=== PATIENT | female | born 1940 | race Hispanic/Latino ===

== ENCOUNTER 2017-08-18 07:23 | Observation (INO) | payer MEDICARE ==
[2017-08-18] VITALS (11 sets, daily range): BP systolic 125–172; BP diastolic 55–83
[~2017-08-18] VITALS: Ht 152.4 cm; Wt 95.5 kg
[~2017-08-18 07:23] MED LIST: ADV250 IH; AEC81 PO; ATEN50TA PO; ATOR20TA65 PO; CLOP75TA32 PO; DEXL60CA3 PO; FOLI0.4T2 PO; FURO40TA5 PO; GABA-531 PO; LEVAHFA IH; METO5TAB2 PO; MULT-1258 PO; RANI150T7 PO; RANO500T2 PO; SERT100T PO; THEO400T3 PO; XALA2.5OS OU
[2017-08-18] MEDS ORDERED: SODIUM CHLORIDE 0.9% 1000ML 1,000 ML IV SCH ×2 (08:00→13:26)
[2017-08-18 08:14] LABS: BASOPHILS % (AUTO) 0.5 % (0.0-5.0); EOSINOPHILS % (AUTO) 3.2 % (0.0-8.0); HEMATOCRIT 37.1 % (36-48); LYMPHOCYTES % (AUTO) 19.1 % (21.0-51.0); MEAN CORPUSCULAR HEMOGLOBIN 26.6 pg (27.0-33.0); MEAN CORPUSCULAR HGB CONC 32.4 g/dL (32.0-36.0); MONOCYTES % (AUTO) 5.8 % (3.0-13.0); NEUTROPHILS % (AUTO) 71.4 % (40.0-77.0); PLATELET COUNT (AUTO) 240 K/uL (130-400); RED BLOOD CELL COUNT(AUTO) 4.52 MIL/uL (4.00-5.50); WHITE BLOOD COUNT (AUTO) 10.9 K/uL (4.8-10.8)
[2017-08-18 08:15] LABS: APPEARANCE,URINE Clear (CLEAR); BILIRUBIN,URINE Negative (NEGATIVE); COLOR,URINE Yellow (YELLOW); GLUCOSE, URINE (UA) Negative (NEGATIVE); KETONES,URINE Negative (NEGATIVE); LEUKOCYTE ESTERASE ,URINE Trace (NEGATIVE); NITRATE,URINE Negative (NEGATIVE); OCCULT BLOOD,URINE Negative (NEGATIVE); PROTEIN,URINE 300 (NEGATIVE)
[2017-08-18 08:24] LABS: BACTERIA,URINE Rare /HPF (None Seen); CREATININE 0.8 mg/dL (0.5-1.5); POTASSIUM 4.5 mmol/L (3.5-5.1); SQUAMOUS EPITHELIAL CELL,UR Few /HPF (0-2)
[2017-08-18 08:29] LABS: YEAST,URINE BUDDING Rare /HPF (None Seen)
[2017-08-18 08:45] LABS: INR 1.02 (0.85-1.15); PARTIAL THROMBOPLASTIN TIME 26.6 SEC (26.3-35.5); PROTHROMBIN TIME 10.7 SEC (9.6-11.6)
[2017-08-18] MEDS ORDERED: systane OP (09:16)
[2017-08-18] MEDS ORDERED: THEO400T3 PO (09:16)
[2017-08-18] MEDS ORDERED: ventolin hfa IH (09:21)
[2017-08-18] MEDS ORDERED: ACET-2743 PO (09:26)
[2017-08-18] MEDS ORDERED: PAZEO OP (09:26)
[2017-08-18] MEDS ORDERED: [UNRECOGNIZED DRUG - OTHER] OP (09:26)
[2017-08-18] MEDS ORDERED: nasonex NASAL (09:26)
[2017-08-18] MEDS ORDERED: CYCL30DR OP (09:26)
[2017-08-18] MEDS ORDERED: UMEC62.5 IH (09:34)
[2017-08-18] MEDS ORDERED: NEB TX IH (10:31)
[2017-08-18] MEDS ORDERED: BIVALIRUDIN 250 MG/VIAL IV ONE (12:05)
[2017-08-18] MEDS ORDERED: LIDOCAINE HCL-MPF 2% 5ML VIAL ONE (12:06)
[2017-08-18] MEDS ORDERED: IOPAMIDOL-370 75 ML VIAL IV ONE (12:06)
[2017-08-18] MEDS ORDERED: NITROGLYCERIN 5 MG/ML 10 ML VIAL IV ONE (12:06)
[2017-08-18] MEDS ORDERED: MIDAZOLAM HCL 1 MG/ML 2ML VIAL ONE (12:36)
[2017-08-18] MEDS ORDERED: FENTANYL CITRATE PF 50 MCG/1 ML 2ML VIAL ONE (12:36)
[2017-08-18] MEDS ORDERED: ATROPINE SULFATE 0.1 MG/ML 10 ML SYG IVP ONE (12:58)
[2017-08-18] MEDS ORDERED: METOPROLOL TARTRATE 1 MG/ML 5ML VIAL IV PRN (13:30)
[2017-08-18] MEDS ORDERED: DEXTROSE 50%-WATER 50 ML DISP.SYRIN IV PRN (13:30)
[2017-08-18] MEDS ORDERED: GLUCAGON 1MG KIT 1 MG ML IM PRN (13:30)
[2017-08-18] MEDS ORDERED: CLOPIDOGREL BISULFATE 300 MG TAB ONE (13:30)
[2017-08-18] MEDS ORDERED: ASPIRIN 81MG TAB.CHEW ONE (13:30)
[2017-08-18] MEDS ORDERED: HYDRALAZINE HCL 20 MG/ML VIAL IV PRN (13:30)
[2017-08-18] MEDS ORDERED: NITROGLYCERIN 0.4 MG SL TAB SL PRN (13:30)
[2017-08-18] MEDS ORDERED: ACETAMINOPHEN EXTRA STRENGTH 500 MG TABLET PO SCH (13:30)
[2017-08-18] MEDS: GABAPENTIN 300 MG CAPSULE PO SCH ×2 (14:19→21:57)
[2017-08-18 15:30] LABS: CREATINE KINASE MB 0.7 ng/mL (0.5-3.6); CREATINE KINASE, TOTAL 58 U/L (21-232); MYOGLOBIN 29 ng/mL (10-92); TROPONIN I < 0.04 ng/mL (0.00-0.06)
[2017-08-18] MEDS: IPRATROPIUM 0.5 MG/2.5 ML INH IH SCH ×2 (18:43→23:10)
[2017-08-18] MEDS ORDERED: THEOPHYLLINE ANHYDROUS 100 MG TAB.SR.12H PO SCH (21:00)
[2017-08-18] MEDS: ***HM***(Cyclosporine (Restasis) 1 DROP) OP SCH (21:00)
[2017-08-18] MEDS ORDERED: ATORVASTATIN CALCIUM 20 MG TABLET PO SCH (21:00)
[2017-08-18] MEDS: ATENOLOL 50 MG TABLET PO SCH (21:00)
[2017-08-18] MEDS ORDERED: LATANOPROST 2.5 ML DROPS OU SCH (21:00)
[2017-08-19 03:47] LABS: HEMATOCRIT 35.5 % (36-48); MEAN CORPUSCULAR HEMOGLOBIN 26.6 pg (27.0-33.0); MEAN CORPUSCULAR HGB CONC 32.6 g/dL (32.0-36.0); MEAN CORPUSCULAR VOLUME 81.8 fL (79-99); PLATELET COUNT (AUTO) 219 K/uL (130-400); RED BLOOD CELL COUNT(AUTO) 4.34 MIL/uL (4.00-5.50); RED CELL DISTRIBUTION WIDTH 18.1 % (11.0-15.5); WHITE BLOOD COUNT (AUTO) 10.7 K/uL (4.8-10.8)
[2017-08-19 03:59] LABS: CREATININE 0.7 mg/dL (0.5-1.5); POTASSIUM 3.9 mmol/L (3.5-5.1)
[2017-08-19 04:08] VITALS: BP 137/50
[2017-08-19] MEDS: IPRATROPIUM 0.5 MG/2.5 ML INH IH SCH (06:39)
[2017-08-19 07:51] VITALS: BP 144/67
[2017-08-19] MEDS ORDERED: LATANOPROST 2.5 ML DROPS OU SCH (08:18)
[2017-08-19] MEDS: GABAPENTIN 300 MG CAPSULE PO SCH (08:27)
[2017-08-19] MEDS: ATENOLOL 50 MG TABLET PO SCH (08:28)
[2017-08-19] MEDS: ***HM***(Cyclosporine (Restasis) 1 DROP) OP SCH (08:29)
[2017-08-19] MEDS ORDERED: ***HM***(Dexlansoprazole (Dexilant) 60 MG) PO SCH (09:00)
[2017-08-19] MEDS ORDERED: SERTRALINE HCL 50 MG TABLET PO SCH (09:00)
[2017-08-19] MEDS ORDERED: CLOPIDOGREL BISULFATE 75 MG TAB PO SCH ×2 (09:00)
[2017-08-19] MEDS ORDERED: LORATADINE 10 MG TABLET PO SCH (09:00)
[2017-08-19] MEDS ORDERED: FUROSEMIDE 40 MG TABLET PO SCH (09:00)
[2017-08-19 10:59] VITALS: BP 149/60
[2017-08-20] MEDS ORDERED: ASPIRIN 81 MG EC TAB PO SCH (09:00)
== END 2017-08-19 12:35 | disposition home or self-care (01) ==
LOC: DAH 07:23 → CLH 07:23 → 2AH 07:24
PROVIDERS: ADMIT Internal Medicine Cardiovascular Disease; ATTEND Internal Medicine Cardiovascular Disease
DX: I25.119 Atherosclerotic heart disease of native coronary artery with unspecified angina pectoris (principal); I25.110 Atherosclerotic heart disease of native coronary artery with unstable angina pectoris; I50.33 Acute on chronic diastolic (congestive) heart failure; I11.0 Hypertensive heart disease with heart failure; E78.5 Hyperlipidemia, unspecified; Z79.899 Other long term (current) drug therapy
CPT/HCPCS: 36415 ×2; 80048 ×2; 80061; 81001; 82550; 82553; 83874; 83880; 84484; 85025; 85027; 85610; 85730; 93005; 93458; 94640 ×3; 94664; A4606; C1725; C1760; C1769; C1874; C1887; C1894 ×2; C9600; G0378 ×29; J0583; J1644; J2250; J3010; J3490 ×2; J7030; Q9967; 99156; 99157; J0461

== ENCOUNTER → 2018-01-03 | Outpatient (CLI) | payer MEDICARE ==
[~2018-01-03] MED LIST changes: +ACET-2743 PO; -ADV250 IH; -ATEN50TA PO; +CYCL30DR OP; -FOLI0.4T2 PO; -LEVAHFA IH; -METO5TAB2 PO; -MULT-1258 PO; +NEB TX IH; +PAZEO OP; -RANO500T2 PO; +UMEC62.5 IH; +[UNRECOGNIZED DRUG - OTHER] OP; +nasonex NASAL; +systane OP; +ventolin hfa IH
== END | disposition home or self-care (01) ==
LOC: SHCH 11:00
PROVIDERS: ATTEND Internal Medicine Cardiovascular Disease
DX: I34.0 Nonrheumatic mitral (valve) insufficiency (principal); I51.7 Cardiomegaly
CPT/HCPCS: 93306

== ENCOUNTER → 2019-02-10 | Outpatient (CLI) | payer MEDICARE ==
[~2019-02-10] MED LIST changes: -NEB TX IH; -RANI150T7 PO
== END | disposition home or self-care (01) ==
LOC: SHCH 11:35
PROVIDERS: ATTEND Internal Medicine Cardiovascular Disease
DX: I48.0 Paroxysmal atrial fibrillation (principal)
CPT/HCPCS: 93306

== ENCOUNTER 2019-10-03 13:16 | Inpatient (IN) | payer MEDICARE ==
[~2019-10-03] VITALS: Ht 152.4 cm; Wt 85.7 kg
[~2019-10-03 13:16] MED LIST changes: -AEC81 PO; +ALBU2.5V2 IH; +APIX5TAB PO; +ATEN50TA PO; +CALC-190 PO; +DILT180C47 PO; +RANI150T7 PO; +SIME80TA11 PO; -[UNRECOGNIZED DRUG - OTHER] OP; -systane OP
[2019-10-03 13:49] LABS: BASOPHILS % (AUTO) 0.4 % (0.0-5.0); HEMATOCRIT 33.4 % (36-48); LYMPHOCYTES % (AUTO) 14.2 % (21.0-51.0); MEAN CORPUSCULAR HEMOGLOBIN 25.1 pg (27.0-33.0); MEAN CORPUSCULAR HGB CONC 31.1 g/dL (32.0-36.0); MEAN CORPUSCULAR VOLUME 80.5 fL (79-99); MONOCYTES % (AUTO) 3.9 % (3.0-13.0); NEUTROPHILS % (AUTO) 78.8 % (40.0-77.0); PLATELET COUNT (AUTO) 290 K/uL (130-400); RED BLOOD CELL COUNT(AUTO) 4.15 MIL/uL (4.00-5.50); RED CELL DISTRIBUTION WIDTH 18.2 % (11.0-15.5); WHITE BLOOD COUNT (AUTO) 10.2 K/uL (4.8-10.8)
[2019-10-03] MEDS ORDERED: VANCOMYCIN 1GM+NS 250ML 250 ML IV ONE (14:07)
[2019-10-03 14:12] LABS: ALBUMIN 2.9 g/dL (3.5-5.0); BILIRUBIN,TOTAL 0.4 mg/dL (0.2-1.0); CREATININE 0.7 mg/dL (0.5-1.5); TOTAL PROTEIN, SERUM 7.1 g/dL (6.0-8.3)
[2019-10-03 14:13] LABS: POTASSIUM 2.9 mmol/L (3.5-5.1)
[2019-10-03] MEDS ORDERED: POTASSIUM CHLORIDE 10% ELIXIR 20 MEQ/15 ML UDCUP ONE ×2 (14:21→15:16)
[2019-10-03 14:37] LABS: APPEARANCE,URINE Clear (CLEAR); BILIRUBIN,URINE Negative (NEGATIVE); COLOR,URINE Yellow (YELLOW); GLUCOSE, URINE (UA) Negative (NEGATIVE); KETONES,URINE Negative (NEGATIVE); LEUKOCYTE ESTERASE ,URINE Negative (NEGATIVE); NITRATE,URINE Negative (NEGATIVE); OCCULT BLOOD,URINE Negative (NEGATIVE); PROTEIN,URINE Negative (NEGATIVE); UROBILINOGEN,URINE 0.2 mg/dL (0.2-1.0)
[2019-10-03] MEDS ORDERED: SODIUM CHLORIDE 0.9% 1000ML 1,000 ML IV ONE (15:17)
[2019-10-03] MEDS ORDERED: LIDOCAINE HCL-MPF 1% 2ML VIAL IJ PRN (15:30)
[2019-10-03] MEDS ORDERED: POTASSIUM CHLORIDE 20 MEQ ERTAB PO PRN (15:30)
[2019-10-03] MEDS ORDERED: VANCOMYCIN PROTOCOL PER PHARMACY IV SCH (15:30)
[2019-10-03] MEDS ORDERED: PHARMACY COMMUNICATION MISC SCH (15:30)
[2019-10-03] MEDS ORDERED: POTASSIUM CHLORIDE 20MEQ/100ML 100 ML IV PRN (15:30)
--- NOTE | 2019-10-03 15:45 | NUR ---
REPORT RECEIVED FROM DIANE CARTAGENA (ED). PATIENT ADMITTED UNDER DR. TRAN BARAHONA FOR LEFT PERIORBITAL CELLULITIS. PATIENT HAD 11 TEETH EXTRACTED FOR PREPARATION OF DENTURES. PATIENT STABLE AND WILL CONTINUE ON VANCO AND CEFEPIME. DR. WHEELER AT BEDSIDE. CPAP AT BEDSIDE.
[2019-10-03] MEDS ORDERED: HYDROMORPHONE HCL 0.5 MG/0.5 ML ML IVP PRN (16:15)
[2019-10-03] MEDS ORDERED: HYDRALAZINE HCL 20 MG/ML VIAL IV PRN (16:15)
[2019-10-03] MEDS ORDERED: LOPERAMIDE HCL 2 MG CAP PO PRN (16:15)
[2019-10-03] MEDS ORDERED: ONDANSETRON HCL 4 MG/2 ML VIAL IVP PRN (16:15)
[2019-10-03 16:54] VITALS: BP 116/62
[2019-10-03] MEDS: CEFEPIME HCL 1 GM VIAL IVP SCH (17:13)
[2019-10-03] MEDS: SODIUM CHLORIDE 0.9% 1000ML 1,000 ML IV SCH (17:14)
[2019-10-03] MEDS ORDERED: COMPOUND IV REFRIGERATED 1 EACH IVSOLN MISC PRN (17:30)
[2019-10-03] MEDS ORDERED: FLUT1DIS3 IH (17:33)
[2019-10-03] MEDS ORDERED: ASPI-1197 PO (17:33)
[2019-10-03] MEDS ORDERED: SERT100T12 PO (17:33)
[2019-10-03] MEDS ORDERED: ATEN50TA PO (17:33)
[2019-10-03 20:00] VITALS: BP 117/49
[2019-10-03] MEDS ORDERED: DEXTROSE 50%-WATER 50 ML DISP.SYRIN IV PRN (20:30)
[2019-10-03] MEDS ORDERED: GLUCAGON 1MG KIT 1 MG ML IM PRN (20:30)
[2019-10-03] MEDS: APIXABAN 5 MG TABLET PO SCH (21:00)
[2019-10-03] MEDS: INSULIN HUMULIN R 100 UNIT/ML 3ML SQ SCH (21:00)
[2019-10-03] MEDS: VANCOMYCIN 1.25 GM in SODIUM CHLORIDE 0.9% 250 ML IV SCH (21:24)
[2019-10-03] MEDS: POTASSIUM CHLORIDE 10% ELIXIR 20 MEQ/15 ML UDCUP PO PRN ×2 (21:25→23:04)
[2019-10-03] MEDS: ACETAMINOPHEN 325 MG TAB PO PRN (22:06)
[2019-10-03 23:58] VITALS: BP 106/46
[2019-10-04 03:57] LABS: BASOPHILS % (AUTO) 0.3 % (0.0-5.0); EOSINOPHILS % (AUTO) 2.8 % (0.0-8.0); HEMATOCRIT 33.1 % (36-48); LYMPHOCYTES % (AUTO) 23.8 % (21.0-51.0); MEAN CORPUSCULAR HEMOGLOBIN 24.6 pg (27.0-33.0); MEAN CORPUSCULAR HGB CONC 30.2 g/dL (32.0-36.0); MEAN CORPUSCULAR VOLUME 81.5 fL (79-99); MONOCYTES % (AUTO) 6.5 % (3.0-13.0); NEUTROPHILS % (AUTO) 66.1 % (40.0-77.0); PLATELET COUNT (AUTO) 294 K/uL (130-400); RED BLOOD CELL COUNT(AUTO) 4.06 MIL/uL (4.00-5.50); RED CELL DISTRIBUTION WIDTH 18.3 % (11.0-15.5); WHITE BLOOD COUNT (AUTO) 9.8 K/uL (4.8-10.8)
[2019-10-04] MEDS: CEFEPIME HCL 1 GM VIAL IVP SCH ×2 (03:58→16:23)
[2019-10-04 04:00] VITALS: BP 140/95
[2019-10-04] MEDS: ACETAMINOPHEN 325 MG TAB PO PRN (04:00)
[2019-10-04 04:26] LABS: ALANINE AMINOTRANSFERASE 28 U/L (12-78); ALBUMIN 2.7 g/dL (3.5-5.0); ASPARTATE AMINOTRANSFERASE 21 U/L (10-37); BILIRUBIN,TOTAL 0.4 mg/dL (0.2-1.0); CARBON DIOXIDE 27 mmol/L (21-32); CHLORIDE 107 mmol/L (101-111); CREATININE 0.7 mg/dL (0.5-1.5); GLOMERULAR FILTR. RATE CALC 86 mL/min (>60); GLUCOSE,RANDOM 102 mg/dL (70-105); POTASSIUM 4.2 mmol/L (3.5-5.1); SODIUM SERUM 143 mmol/L (136-145); TOTAL PROTEIN, SERUM 6.7 g/dL (6.0-8.3); UREA NITROGEN, BLOOD 8 mg/dL (7-18)
[2019-10-04] MEDS: INSULIN HUMULIN R 100 UNIT/ML 3ML SQ SCH ×4 (06:41→21:00)
[2019-10-04 08:06] VITALS: BP 148/61
[2019-10-04] MEDS ORDERED: ENOXAPARIN SODIUM 40 MG/0.4 ML SYRINGE SQ SCH (09:00)
[2019-10-04] MEDS: VANCOMYCIN 1.25 GM in SODIUM CHLORIDE 0.9% 250 ML IV SCH ×2 (09:23→21:40)
[2019-10-04] MEDS: ASPIRIN 81MG TAB.CHEW PO SCH (09:24)
[2019-10-04] MEDS: PANTOPRAZOLE SODIUM 40 MG TABLET.DR PO SCH (09:24)
[2019-10-04] MEDS: APIXABAN 5 MG TABLET PO SCH ×2 (09:24→21:42)
[2019-10-04] MEDS: ATENOLOL 50 MG TABLET PO SCH (10:42)
[2019-10-04] MEDS: DILTIAZEM HCL 180 MG CAP.SR.24H PO SCH (10:43)
[2019-10-04] MEDS: FUROSEMIDE 40 MG TABLET PO SCH (10:43)
[2019-10-04] MEDS: SERTRALINE HCL 50 MG TABLET PO SCH (10:43)
--- NOTE | 2019-10-04 10:53 | NUR ---
DCP CM unable to meet with pt, called daughter on facesheet, spoke to Lela Lacy , discussed dc plans. Pt is semi-independent prior to admission, lives at home with spouse and nephew. Pt has a walker, wheelchair, cpap, O2 w/[employer], provider 3-4 hrs daily. Denies any other equipments/services. Feels safe to go back home, family able to assist with transportation and needs as necessary. DC plan to home once stable. CM to cont to follow up. Addendum: 10/04/19 at 1055 by JAYME LANDRUM LVN CM Amended: Links added.
[2019-10-04 11:46] VITALS: BP 148/64
[2019-10-04] MEDS ORDERED: ALBUTEROL SULFATE 0.083% 2.5 MG/3 ML INH IH PRN (12:00)
[2019-10-04] MEDS ORDERED: ALBUTEROL SULFATE 0.083% 2.5 MG/3 ML INH IH SCH (12:00)
[2019-10-04 16:51] VITALS: BP 133/53
[2019-10-04] MEDS ORDERED: BUDESONIDE 0.5 MG/2 ML INH IH SCH (18:00)
[2019-10-04] MEDS ORDERED: BUDESONIDE 0.5 MG/2 ML INH IH PRN (18:00)
[2019-10-04 20:00] VITALS: BP 115/41
[2019-10-04] MEDS ORDERED: LATANOPROST 2.5 ML DROPS OU SCH (21:00)
[2019-10-04] MEDS ORDERED: ATORVASTATIN CALCIUM 40 MG TABLET PO SCH (21:00)
[2019-10-04] MEDS: CALCIUM 600 + VITAMIN D 400 TABLET PO SCH (21:39)
--- NOTE | 2019-10-04 21:53 | NUR ---
PAGED RT TO ASSIST WITH PLACING PT CPAP ORDEREDFOR HS. GARY, RT SAID HE WOULD COME ASSESS THE PT.
[2019-10-05] VITALS: BP 131/51
[2019-10-05] MEDS: ACETAMINOPHEN 325 MG TAB PO PRN (00:04)
--- NOTE | 2019-10-05 01:56 | NUR ---
PIV NEW PIV INSERTED BY DIANE PLATT TO RIGHT UPPER ARM. IV INFUSIONS CONT INFUSING. PIV ON RIGHT FOREARM INFILTRATED- CATH INTACT. GAUZE AND TEGADERM APPLIED TO SITE, TO REDUCE THE BLEEDING.
[2019-10-05] MEDS: CEFEPIME HCL 1 GM VIAL IVP SCH (03:37)
[2019-10-05] MEDS: SODIUM CHLORIDE 0.9% 1000ML 1,000 ML IV SCH (03:38)
[2019-10-05 04:00] VITALS: BP 102/51
[2019-10-05] MEDS: INSULIN HUMULIN R 100 UNIT/ML 3ML SQ SCH ×2 (07:30→11:30)
[2019-10-05 08:12] LABS: HEMATOCRIT 33.7 % (36-48); MEAN CORPUSCULAR HEMOGLOBIN 24.9 pg (27.0-33.0); MEAN CORPUSCULAR HGB CONC 30.3 g/dL (32.0-36.0); MEAN CORPUSCULAR VOLUME 82.2 fL (79-99); RED BLOOD CELL COUNT(AUTO) 4.1 MIL/uL (4.00-5.50); RED CELL DISTRIBUTION WIDTH 18.5 % (11.0-15.5)
[2019-10-05 08:22] LABS: CREATININE 0.9 mg/dL (0.5-1.5); POTASSIUM 4.3 mmol/L (3.5-5.1)
[2019-10-05 08:31] VITALS: BP 143/59
[2019-10-05] MEDS ORDERED: FUROSEMIDE 40 MG TABLET PO SCH (09:00)
[2019-10-05] MEDS ORDERED: SUB TO BREO ELLIPTA 100MCG/25MCG PER P&T IH SCH (09:00)
[2019-10-05] MEDS ORDERED: SERTRALINE HCL 50 MG TABLET PO SCH (09:00)
[2019-10-05] MEDS ORDERED: ATENOLOL 50 MG TABLET PO SCH (09:00)
[2019-10-05] MEDS: ASPIRIN 81MG TAB.CHEW PO SCH (10:59)
[2019-10-05] MEDS: ATENOLOL 50 MG TABLET PO SCH (11:01)
[2019-10-05] MEDS: DILTIAZEM HCL 180 MG CAP.SR.24H PO SCH (11:01)
[2019-10-05] MEDS: CALCIUM 600 + VITAMIN D 400 TABLET PO SCH (11:01)
[2019-10-05] MEDS: FUROSEMIDE 40 MG TABLET PO SCH (11:02)
[2019-10-05] MEDS: PANTOPRAZOLE SODIUM 40 MG TABLET.DR PO SCH (11:02)
[2019-10-05] MEDS: APIXABAN 5 MG TABLET PO SCH (11:02)
[2019-10-05] MEDS: SERTRALINE HCL 50 MG TABLET PO SCH (11:07)
[2019-10-05 11:27] VITALS: BP 137/63
[2019-10-05] MEDS ORDERED: LEVO500T2 PO (15:17)
--- NOTE | 2019-10-05 16:15 | NUR ---
DISCHARGE called patients daughter discussed discharge medications with daughter voices understanding ,will pick her up at ER entrance
== END 2019-10-05 16:25 | disposition home or self-care (01) | DRG 603 ==
LOC: EDH 13:16 → EDHIP 13:55 → 3DH 15:54
PROVIDERS: ADMIT Internal Medicine; ATTEND Internal Medicine
PROC: 5A09357 Assistance with Respiratory Ventilation, Less than 24 Consecutive Hours, Continuous Positive Airway Pressure (ICD-10-PCS; principal; 2019-10-03)
PROC: 5A09357 Assistance with Respiratory Ventilation, Less than 24 Consecutive Hours, Continuous Positive Airway Pressure (ICD-10-PCS; 2019-10-04)
PROC: 5A09357 Assistance with Respiratory Ventilation, Less than 24 Consecutive Hours, Continuous Positive Airway Pressure (ICD-10-PCS; 2019-10-05)
DX: L03.213 Periorbital cellulitis (principal); I50.30 Unspecified diastolic (congestive) heart failure; I48.91 Unspecified atrial fibrillation; J44.9 Chronic obstructive pulmonary disease, unspecified; E66.01 Morbid (severe) obesity due to excess calories; I11.0 Hypertensive heart disease with heart failure; E78.5 Hyperlipidemia, unspecified; G47.33 Obstructive sleep apnea (adult) (pediatric); E87.6 Hypokalemia; E11.9 Type 2 diabetes mellitus without complications; K21.9 Gastro-esophageal reflux disease without esophagitis; I25.10 Atherosclerotic heart disease of native coronary artery without angina pectoris; Z68.36 Body mass index [BMI] 36.0-36.9, adult; Z79.01 Long term (current) use of anticoagulants; Z79.82 Long term (current) use of aspirin; Z79.899 Other long term (current) drug therapy; Z95.5 Presence of coronary angioplasty implant and graft; Z88.5 Allergy status to narcotic agent; Z90.710 Acquired absence of both cervix and uterus; Z90.49 Acquired absence of other specified parts of digestive tract
CPT/HCPCS: 36415; 70486; 71046; 80048; 80053; 80202; 81003; 82948; 83605; 84132; 84145; 85025; 85027; 87040; 94664; G0378; J0692; J1815; J3370; J3480; J3490; J7030; J7050

== ENCOUNTER 2019-11-09 16:02 | Inpatient (IN) | payer MEDICARE ==
[~2019-11-09] VITALS: Ht 152.4 cm; Wt 83.1 kg
[2019-11-09 16:00] VITALS: BP 111/83
[~2019-11-09 16:02] MED LIST changes: -ACET-2743 PO; +ASPI-1197 PO; -CLOP75TA32 PO; -CYCL30DR OP; +FLUT1DIS3 IH; -GABA-531 PO; +LEVO500T2 PO; -PAZEO OP; -RANI150T7 PO; -SERT100T PO; +SERT100T12 PO; -SIME80TA11 PO; -THEO400T3 PO; -UMEC62.5 IH; -nasonex NASAL; -ventolin hfa IH
[2019-11-09 17:10] LABS: BASOPHILS % (AUTO) 0.3 % (0.0-5.0); EOSINOPHILS % (AUTO) 1.2 % (0.0-8.0); HEMATOCRIT 36.6 % (36-48); LYMPHOCYTES % (AUTO) 15.5 % (21.0-51.0); MEAN CORPUSCULAR HEMOGLOBIN 25.6 pg (27.0-33.0); MEAN CORPUSCULAR HGB CONC 30.9 g/dL (32.0-36.0); MEAN CORPUSCULAR VOLUME 82.8 fL (79-99); MONOCYTES % (AUTO) 7.5 % (3.0-13.0); NEUTROPHILS % (AUTO) 74.9 % (40.0-77.0); NUCLEATED RED BLOOD CELLS 0.6 % (0.0-0.19); PLATELET COUNT (AUTO) 259 K/uL (130-400); RED BLOOD CELL COUNT(AUTO) 4.42 MIL/uL (4.00-5.50); WHITE BLOOD COUNT (AUTO) 14.2 K/uL (4.8-10.8)
[2019-11-09 17:13] LABS: POTASSIUM 3.7 mmol/L (3.5-5.1)
[2019-11-09] MEDS ORDERED: ALPRAZOLAM 0.25 MG TABLET PO PRN (17:15)
[2019-11-09] MEDS ORDERED: ONDANSETRON HCL 4 MG/2 ML VIAL IVP PRN (17:15)
[2019-11-09] MEDS ORDERED: DILTIAZEM 125MG+100 ML NS 125 ML IV PRN (17:15)
[2019-11-09 17:17] LABS: ALBUMIN 3.3 g/dL (3.5-5.0); BILIRUBIN,TOTAL 0.4 mg/dL (0.2-1.0); MAGNESIUM 1.6 mg/dL (1.80-2.40); PHOSPHORUS 4.2 mg/dL (2.5-4.9); TOTAL PROTEIN, SERUM 7.5 g/dL (6.0-8.3)
[2019-11-09 18:22] LABS: APPEARANCE,URINE Clear (CLEAR); BILIRUBIN,URINE Negative (NEGATIVE); COLOR,URINE Yellow (YELLOW); GLUCOSE, URINE (UA) Negative (NEGATIVE); KETONES,URINE Negative (NEGATIVE); LEUKOCYTE ESTERASE ,URINE Negative (NEGATIVE); NITRATE,URINE Positive (NEGATIVE); OCCULT BLOOD,URINE Trace (NEGATIVE); PH,URINE 5.5 (5.0-8.0); PROTEIN,URINE POS 2+ mg/dL (NEGATIVE); UROBILINOGEN,URINE 0.2 mg/dL (0.2-1.0)
[2019-11-09] MEDS ORDERED: ACET325T51 PO (18:31)
[2019-11-09 18:57] LABS: BACTERIA,URINE Many /HPF (None Seen); MUCUS,URINE Few LPF (None Seen); SQUAMOUS EPITHELIAL CELL,UR Few /HPF (0-2)
[2019-11-09] MEDS ORDERED: POTASSIUM CHLORIDE 10% ELIXIR 20 MEQ/15 ML UDCUP PO PRN (19:15)
[2019-11-09] MEDS ORDERED: MAGNESIUM 4GM PREMIX 100ML 100 ML IV PRN (19:15)
[2019-11-09] MEDS ORDERED: IPRATROPIUM 0.5 MG/2.5 ML INH IH PRN (19:15)
[2019-11-09] MEDS ORDERED: POTASSIUM CHLORIDE 20MEQ/100ML 100 ML IV PRN ×2 (19:15)
[2019-11-09] MEDS ORDERED: LIDOCAINE HCL-MPF 1% 2ML VIAL IV PRN ×2 (19:15)
[2019-11-09] MEDS ORDERED: MAGNESIUM 2GM PREMIX 50ML 50 ML IV PRN (19:15)
[2019-11-09] MEDS: FUROSEMIDE 10 MG/ML 4ML VIAL IV SCH (20:07)
[2019-11-09] MEDS: METHYLPREDNISOLONE SOD SUCC 40MG/ML 1ML IVP SCH (20:07)
[2019-11-09] MEDS: APIXABAN 5 MG TABLET PO SCH (20:08)
[2019-11-09] MEDS: LATANOPROST 2.5 ML DROPS OU SCH (20:08)
[2019-11-09] MEDS: CALCIUM 600 + VITAMIN D 400 TABLET PO SCH (20:09)
[2019-11-09] MEDS: POTASSIUM CHLORIDE 20 MEQ ERTAB PO PRN ×2 (20:09→22:08)
[2019-11-09] MEDS: ATORVASTATIN CALCIUM 20 MG TABLET PO SCH (20:14)
[2019-11-09 20:55] VITALS: BP 122/71
[2019-11-09] MEDS ORDERED: FUROSEMIDE 40 MG TABLET PO SCH (21:00)
[2019-11-09] MEDS ORDERED: DILTIAZEM HCL 5 MG/ML 10 ML VIAL IV STA (22:27)
[2019-11-09] MEDS ORDERED: METOPROLOL TARTRATE 1 MG/ML 5ML VIAL IV ONE (22:47)
[2019-11-09] MEDS: IPRATROPIUM 0.5 MG/2.5 ML INH IH SCH (23:19)
[2019-11-09] MEDS: BUDESONIDE 0.5 MG/2 ML INH IH SCH (23:19)
[2019-11-09] MEDS ORDERED: AMIODARONE HCL 360 MG in DEXTROSE 5%-WATER 200 ML IV SCH (23:30)
[2019-11-09] MEDS ORDERED: AMIODARONE HCL 150 MG in DEXTROSE 5%-WATER 100 ML IV SCH (23:30)
[2019-11-09] MEDS ORDERED: METOPROLOL TARTRATE 1 MG/ML 5ML VIAL IV PRN (23:30)
--- NOTE | 2019-11-09 23:30 | NUR ---
First called ALFREDO López w/[facility] regarding pt's HR. HR very variable between 80-140s at rest. Pt already at max of 15MG/HR on diltiazem gtt and has taken home dose of ER diltiazem. ALFREDO López requests 2.5 MG IV Metoprolol Q6H PRN for HR greater than 110 and NS at 50ML/HR if pt not with heart failure. Afterwards called cardiology per pt's daughter request who is also provider. In paper chart order for "consult heart clinic" but hadn't been called up until now. Dr. Joseph states may load pt with amiodarone and start maintenance amiodarone gtt per local protocol. states NS at 50ML/HR not indicated at this time.
[2019-11-09] MEDS ORDERED: AMIODARONE HCL 50 MG/ML 3 ML VIAL ONE (23:49)
[2019-11-09] MEDS ORDERED: AMIODARONE HCL 900MG/18ML IV ONE (23:56)
[2019-11-10] MEDS ORDERED: DEXTROSE 5%-WATER 500 ML IV ONE (00:02)
[2019-11-10] MEDS ORDERED: DEXTROSE 5%-WATER 1,000 ML IV ONE (00:12)
[2019-11-10 00:21] VITALS: BP 112/80
[2019-11-10] MEDS: FUROSEMIDE 10 MG/ML 4ML VIAL IV SCH ×2 (05:54→15:54)
[2019-11-10 06:11] LABS: HEMATOCRIT 35.3 % (36-48); MEAN CORPUSCULAR HEMOGLOBIN 25.5 pg (27.0-33.0); MEAN CORPUSCULAR HGB CONC 30.9 g/dL (32.0-36.0); MEAN CORPUSCULAR VOLUME 82.7 fL (79-99); NUCLEATED RED BLOOD CELLS 0.4 % (0.0-0.19); RED BLOOD CELL COUNT(AUTO) 4.27 MIL/uL (4.00-5.50); RED CELL DISTRIBUTION WIDTH 18.7 % (11.0-15.5); WHITE BLOOD COUNT (AUTO) 12.1 K/uL (4.8-10.8)
[2019-11-10 06:20] VITALS: BP 108/42
[2019-11-10 06:28] LABS: MAGNESIUM 1.7 mg/dL (1.80-2.40); POTASSIUM 4.3 mmol/L (3.5-5.1)
[2019-11-10] MEDS: BUDESONIDE 0.5 MG/2 ML INH IH SCH ×2 (06:30→19:00)
[2019-11-10] MEDS: IPRATROPIUM 0.5 MG/2.5 ML INH IH SCH ×4 (06:30→23:43)
[2019-11-10 08:16] VITALS: BP 115/63
[2019-11-10] MEDS: APIXABAN 5 MG TABLET PO SCH ×2 (08:46→19:41)
[2019-11-10] MEDS: SERTRALINE HCL 50 MG TABLET PO SCH (08:46)
[2019-11-10] MEDS: ASPIRIN 81MG TAB.CHEW PO SCH (08:48)
[2019-11-10] MEDS: PANTOPRAZOLE SODIUM 40 MG TABLET.DR PO SCH (08:48)
[2019-11-10] MEDS: CALCIUM 600 + VITAMIN D 400 TABLET PO SCH ×2 (08:48→20:33)
[2019-11-10] MEDS: METHYLPREDNISOLONE SOD SUCC 40MG/ML 1ML IVP SCH ×2 (08:49→20:33)
[2019-11-10] MEDS: DILTIAZEM HCL 180 MG CAP.SR.24H PO SCH (08:49)
[2019-11-10] MEDS ORDERED: ATENOLOL 50 MG TABLET PO SCH (09:00)
[2019-11-10] MEDS: ADVAIR 250-50 DISKUS IH SCH ×2 (09:00→20:33)
[2019-11-10] MEDS ORDERED: DILTIAZEM HCL 180 MG PO SCH (09:00)
[2019-11-10] MEDS ORDERED: NON-FORMULARY MEDICATION 1 EACH (Dexlansoprazole (Dexilant) 60 MG) PO SCH (09:00)
[2019-11-10] MEDS ORDERED: NON-FORMULARY MEDICATION 1 EACH (Sertraline HCl 200 MG) PO SCH (09:00)
[2019-11-10] MEDS: ACETAMINOPHEN 325 MG TAB PO PRN ×2 (09:06→19:42)
[2019-11-10 11:50] VITALS: BP 74/52
[2019-11-10] MEDS ORDERED: ALBUMIN (HUMAN) 25% 100 ML IV STA (13:57)
--- NOTE | 2019-11-10 14:44 | NUR ---
samir note met with patient, and pt's daughter, pt lives w spouse, walker, w/c uses walker in home, and w/c outside of home. Oxygen dependent has O2 portable and concentrator. CPAP at , and nebulizer provider 20hrs/week. dc plan is back home at [place]. Addendum: 11/10/19 at 1453 by MADISON BILLS CM Amended: Links added.
[2019-11-10 17:34] VITALS: BP 103/80
[2019-11-10] MEDS ORDERED: ALBUMIN (HUMAN) 25% 100 ML IV SCH (18:00)
[2019-11-10] MEDS: ATORVASTATIN CALCIUM 20 MG TABLET PO SCH (19:41)
[2019-11-10 20:31] VITALS: BP 114/62
[2019-11-10] MEDS: LATANOPROST 2.5 ML DROPS OU SCH (20:33)
[2019-11-11 00:31] VITALS: BP 115/72
[2019-11-11 04:32] LABS: BASOPHILS % (AUTO) 0.1 % (0.0-5.0); HEMATOCRIT 34.1 % (36-48); LYMPHOCYTES % (AUTO) 10.2 % (21.0-51.0); MEAN CORPUSCULAR HEMOGLOBIN 25.2 pg (27.0-33.0); MEAN CORPUSCULAR HGB CONC 30.8 g/dL (32.0-36.0); MONOCYTES % (AUTO) 3.1 % (3.0-13.0); NEUTROPHILS % (AUTO) 85.3 % (40.0-77.0); NUCLEATED RED BLOOD CELLS 1.4 % (0.0-0.19); PLATELET COUNT (AUTO) 243 K/uL (130-400); RED BLOOD CELL COUNT(AUTO) 4.16 MIL/uL (4.00-5.50); RED CELL DISTRIBUTION WIDTH 18.9 % (11.0-15.5); WHITE BLOOD COUNT (AUTO) 13.7 K/uL (4.8-10.8)
[2019-11-11 04:41] LABS: CREATININE 1.3 mg/dL (0.5-1.5); MAGNESIUM 2.2 mg/dL (1.80-2.40); POTASSIUM 4.3 mmol/L (3.5-5.1)
[2019-11-11 04:47] LABS: HEMOGLOBIN A1C 6.8 % (4.0-6.0)
[2019-11-11 04:55] LABS: B-TYPE NATRIURETIC PEPTIDE 617 pg/mL (0-100)
[2019-11-11 05:07] VITALS: BP 125/81
[2019-11-11] MEDS: BUDESONIDE 0.5 MG/2 ML INH IH SCH ×2 (06:18→19:02)
[2019-11-11] MEDS: IPRATROPIUM 0.5 MG/2.5 ML INH IH SCH ×4 (06:18→23:27)
[2019-11-11] MEDS: FUROSEMIDE 10 MG/ML 4ML VIAL IV SCH ×2 (06:33→20:39)
[2019-11-11 07:15] VITALS: BP 122/88
[2019-11-11] MEDS: APIXABAN 5 MG TABLET PO SCH ×2 (08:37→18:25)
[2019-11-11] MEDS: ASPIRIN 81MG TAB.CHEW PO SCH (08:37)
[2019-11-11] MEDS: DILTIAZEM HCL 180 MG CAP.SR.24H PO SCH (08:37)
[2019-11-11] MEDS: CALCIUM 600 + VITAMIN D 400 TABLET PO SCH ×2 (08:37→20:40)
[2019-11-11] MEDS: SERTRALINE HCL 50 MG TABLET PO SCH (08:37)
[2019-11-11] MEDS: PANTOPRAZOLE SODIUM 40 MG TABLET.DR PO SCH (08:38)
[2019-11-11] MEDS: ATENOLOL 50 MG TABLET PO SCH ×2 (08:38→20:41)
[2019-11-11] MEDS: METHYLPREDNISOLONE SOD SUCC 40MG/ML 1ML IVP SCH ×2 (08:38→20:39)
[2019-11-11] MEDS: ADVAIR 250-50 DISKUS IH SCH ×2 (08:39→21:00)
[2019-11-11 11:15] VITALS: BP 130/70
[2019-11-11 15:10] VITALS: BP 108/75
[2019-11-11] MEDS: MEROPENEM 1 GM VIAL IVP SCH (15:20)
[2019-11-11] MEDS: LATANOPROST 2.5 ML DROPS OU SCH (20:39)
[2019-11-11] MEDS: ATORVASTATIN CALCIUM 20 MG TABLET PO SCH (20:40)
[2019-11-11 20:50] VITALS: BP 96/57
[2019-11-12] VITALS (7 sets, daily range): BP systolic 108–132; BP diastolic 71–96
[2019-11-12 05:59] LABS: HEMATOCRIT 34.5 % (36-48); MEAN CORPUSCULAR HEMOGLOBIN 25.2 pg (27.0-33.0); MEAN CORPUSCULAR HGB CONC 30.4 g/dL (32.0-36.0); MEAN CORPUSCULAR VOLUME 82.9 fL (79-99); NUCLEATED RED BLOOD CELLS 0.7 % (0.0-0.19); RED BLOOD CELL COUNT(AUTO) 4.16 MIL/uL (4.00-5.50); RED CELL DISTRIBUTION WIDTH 19.1 % (11.0-15.5); WHITE BLOOD COUNT (AUTO) 12.2 K/uL (4.8-10.8)
[2019-11-12 06:13] LABS: INR 1.38 (0.85-1.15); PARTIAL THROMBOPLASTIN TIME 25.5 SEC (26.3-35.5); PROTHROMBIN TIME 14.7 SEC (9.6-11.6)
[2019-11-12] MEDS: IPRATROPIUM 0.5 MG/2.5 ML INH IH SCH ×3 (06:16→18:44)
[2019-11-12] MEDS: BUDESONIDE 0.5 MG/2 ML INH IH SCH ×2 (06:17→19:07)
[2019-11-12 06:21] LABS: CREATININE 1.1 mg/dL (0.5-1.5); POTASSIUM 4.5 mmol/L (3.5-5.1)
[2019-11-12] MEDS: FUROSEMIDE 10 MG/ML 4ML VIAL IV SCH ×2 (06:37→18:39)
[2019-11-12] MEDS: APIXABAN 5 MG TABLET PO SCH ×3 (08:17→21:00)
[2019-11-12] MEDS: ASPIRIN 81MG TAB.CHEW PO SCH (08:17)
[2019-11-12] MEDS: PANTOPRAZOLE SODIUM 40 MG TABLET.DR PO SCH (08:43)
[2019-11-12] MEDS: CALCIUM 600 + VITAMIN D 400 TABLET PO SCH ×2 (08:43→19:58)
[2019-11-12] MEDS: DILTIAZEM HCL 180 MG CAP.SR.24H PO SCH (08:44)
[2019-11-12] MEDS: SERTRALINE HCL 50 MG TABLET PO SCH (08:44)
[2019-11-12] MEDS: METHYLPREDNISOLONE SOD SUCC 40MG/ML 1ML IVP SCH ×2 (08:44→19:59)
[2019-11-12] MEDS: ADVAIR 250-50 DISKUS IH SCH ×2 (08:45→20:00)
[2019-11-12] MEDS: ATENOLOL 50 MG TABLET PO SCH (08:47)
[2019-11-12] MEDS ORDERED: APIXABAN 5 MG TABLET PO SCH (12:45)
[2019-11-12] MEDS: MEROPENEM 1 GM VIAL IVP SCH (13:38)
[2019-11-12] MEDS: ATORVASTATIN CALCIUM 20 MG TABLET PO SCH (19:58)
[2019-11-12] MEDS: DOCUSATE SODIUM 100 MG CAP PO SCH (19:58)
[2019-11-12] MEDS: DRONEDARONE HYDROCHLORIDE 400 MG TABLET PO SCH (19:59)
[2019-11-12] MEDS: LATANOPROST 2.5 ML DROPS OU SCH (19:59)
[2019-11-13] VITALS (15 sets, daily range): BP systolic 91–148; BP diastolic 48–74
[2019-11-13] MEDS: IPRATROPIUM 0.5 MG/2.5 ML INH IH SCH ×4 (00:52→19:07)
[2019-11-13 04:06] LABS: BASOPHILS % (AUTO) 0.1 % (0.0-5.0); HEMATOCRIT 36.5 % (36-48); LYMPHOCYTES % (AUTO) 12.6 % (21.0-51.0); MEAN CORPUSCULAR HEMOGLOBIN 25.1 pg (27.0-33.0); MEAN CORPUSCULAR HGB CONC 29.9 g/dL (32.0-36.0); MEAN CORPUSCULAR VOLUME 83.9 fL (79-99); NEUTROPHILS % (AUTO) 81.6 % (40.0-77.0); NUCLEATED RED BLOOD CELLS 1.8 % (0.0-0.19); PLATELET COUNT (AUTO) 259 K/uL (130-400); RED BLOOD CELL COUNT(AUTO) 4.35 MIL/uL (4.00-5.50); RED CELL DISTRIBUTION WIDTH 19.2 % (11.0-15.5); WHITE BLOOD COUNT (AUTO) 9.7 K/uL (4.8-10.8)
[2019-11-13 04:14] LABS: CREATININE 1.2 mg/dL (0.5-1.5); MAGNESIUM 2.1 mg/dL (1.80-2.40); POTASSIUM 5.8 mmol/L (3.5-5.1)
[2019-11-13 04:21] LABS: INR 1.28 (0.85-1.15); PARTIAL THROMBOPLASTIN TIME 23.3 SEC (26.3-35.5); PROTHROMBIN TIME 13.7 SEC (9.6-11.6)
[2019-11-13 04:46] LABS: B-TYPE NATRIURETIC PEPTIDE 880 pg/mL (0-100)
[2019-11-13] MEDS: ATENOLOL 50 MG TABLET PO SCH (05:29)
[2019-11-13] MEDS: APIXABAN 5 MG TABLET PO SCH ×3 (05:30→20:57)
[2019-11-13] MEDS: DILTIAZEM HCL 180 MG CAP.SR.24H PO SCH (05:30)
[2019-11-13] MEDS: FUROSEMIDE 10 MG/ML 4ML VIAL IV SCH ×2 (05:31→18:36)
[2019-11-13] MEDS: BUDESONIDE 0.5 MG/2 ML INH IH SCH ×2 (06:12→18:56)
[2019-11-13] MEDS: DOCUSATE SODIUM 100 MG CAP PO SCH ×2 (07:48→20:57)
[2019-11-13] MEDS: PANTOPRAZOLE SODIUM 40 MG TABLET.DR PO SCH ×2 (07:48→12:18)
[2019-11-13] MEDS: ASPIRIN 81MG TAB.CHEW PO SCH ×2 (07:48→12:18)
[2019-11-13] MEDS: CALCIUM 600 + VITAMIN D 400 TABLET PO SCH ×2 (07:48→20:57)
[2019-11-13] MEDS: SERTRALINE HCL 50 MG TABLET PO SCH ×2 (07:49→12:22)
[2019-11-13] MEDS: METHYLPREDNISOLONE SOD SUCC 40MG/ML 1ML IVP SCH ×2 (08:11→20:57)
[2019-11-13] MEDS ORDERED: PROPOFOL 10 MG/ML 20ML VIAL IV ONE (08:45)
[2019-11-13] MEDS: ADVAIR 250-50 DISKUS IH SCH ×2 (09:00→19:57)
[2019-11-13] MEDS: DRONEDARONE HYDROCHLORIDE 400 MG TABLET PO SCH ×3 (09:00→20:57)
--- NOTE | 2019-11-13 09:15 | NUR ---
CARDIOVERSION PT PREPPED FOR CARDIOVERSION W/ANESTHESIA @ BEDSIDE BY DR ROSE. PT SUPINE. O2 NC @ 3L. V/S PER SPREADSHEET. CONSENT FOR CARDIOVERSION ALREADY SIGNED BY PT. @ 0850 DR ROSE & Juice LEDEZMA CRNA IN . @ 0851 PROCEDURE TIME OUT @ BEDSIDE DONE. @ 0853 PROPOFOL IV GIVEN BY MARINE CHRONOMETER ASSEMBLER. O2 NC @ 10L PER MARINE CHRONOMETER ASSEMBLER. @ 0854 PT SHOCK X 1 @ [address] ROSE. PT CONVERTED TO SR W/PACs 50s. V/S WNL. @ 0902 DR ROSE OUT OF ROOM. PT @ O2 NC @ 3L PER MARINE CHRONOMETER ASSEMBLER. @ 0906 Juice LEDEZMA CRNA OUT OF RM. PT TOLERATED CARDIOVERSION WELL. V/S WNL.
[2019-11-13] MEDS: MEROPENEM 1 GM VIAL IVP SCH (13:51)
[2019-11-13] MEDS ORDERED: PHARMACY COMMUNICATION MISC SCH (14:45)
--- NOTE | 2019-11-13 18:01 | NUR ---
DISCHARGE PLANNING- HOME HEALTH FOR IM MEDICATION X 7 DAYS [facility] FOR NURSES THAT CARE BY DR. LIAM DTR, AT BEDSIDE, DISCUSSED GETTING THE MED, REFERRAL SENT TO NURSES THAT CARE . CALL TO [facility], DID NOT HAVE, WOULD NEED TO ORDER, CALL TO [facility], THEY HAVE THE PRESCRIPTION, ORDER SENT VIA FAX, CONFIRMATION REC'D WILL FOLLOW UP IN AM Addendum: 11/14/19 at 0917 by EDWIN FAROOQ RN Amended: Links added.
[2019-11-13] MEDS: LIDOCAINE HCL 1% 10 ML VIAL MISC SCH (18:36)
[2019-11-13] MEDS: ERTAPENEM SODIUM 1 GM/VIAL IM SCH (18:37)
[2019-11-13] MEDS: ATORVASTATIN CALCIUM 20 MG TABLET PO SCH (20:57)
[2019-11-13] MEDS: LATANOPROST 2.5 ML DROPS OU SCH (20:57)
[2019-11-14] MEDS: IPRATROPIUM 0.5 MG/2.5 ML INH IH SCH ×2 (00:19→06:00)
[2019-11-14 04:00] VITALS: BP 113/46
[2019-11-14] MEDS: FUROSEMIDE 10 MG/ML 4ML VIAL IV SCH (07:00)
[2019-11-14] MEDS: METHYLPREDNISOLONE SOD SUCC 40MG/ML 1ML IVP SCH (09:00)
[2019-11-14] MEDS: CALCIUM 600 + VITAMIN D 400 TABLET PO SCH (09:11)
[2019-11-14] MEDS: PANTOPRAZOLE SODIUM 40 MG TABLET.DR PO SCH (09:11)
[2019-11-14] MEDS: DRONEDARONE HYDROCHLORIDE 400 MG TABLET PO SCH (09:11)
[2019-11-14] MEDS: DOCUSATE SODIUM 100 MG CAP PO SCH (09:11)
[2019-11-14] MEDS: APIXABAN 5 MG TABLET PO SCH (09:15)
[2019-11-14] MEDS: ASPIRIN 81MG TAB.CHEW PO SCH (09:16)
[2019-11-14] MEDS: SERTRALINE HCL 50 MG TABLET PO SCH (09:16)
[2019-11-14] MEDS: ATENOLOL 50 MG TABLET PO SCH (09:17)
[2019-11-14 09:20] VITALS: BP 121/69
[2019-11-14] MEDS ORDERED: DRON400T2 PO (09:21)
[2019-11-14 11:14] VITALS: BP 134/69
[2019-11-14 11:44] VITALS: BP 134/69
[2019-11-14] MEDS: LIDOCAINE HCL 1% 10 ML VIAL MISC SCH (15:32)
[2019-11-14] MEDS: ERTAPENEM SODIUM 1 GM/VIAL IM SCH (15:33)
== END 2019-11-14 18:30 | disposition home health service (06) | DRG 308 ==
LOC: EDH 16:02 → EDHIP 17:25 → 4CH 18:39
PROVIDERS: ADMIT Internal Medicine Critical Care Medicine; ATTEND Internal Medicine Critical Care Medicine
PROC: 5A09357 Assistance with Respiratory Ventilation, Less than 24 Consecutive Hours, Continuous Positive Airway Pressure (ICD-10-PCS; principal; 2019-11-10)
PROC: 5A09357 Assistance with Respiratory Ventilation, Less than 24 Consecutive Hours, Continuous Positive Airway Pressure (ICD-10-PCS; 2019-11-11)
PROC: 5A09357 Assistance with Respiratory Ventilation, Less than 24 Consecutive Hours, Continuous Positive Airway Pressure (ICD-10-PCS; 2019-11-12)
PROC: 5A09357 Assistance with Respiratory Ventilation, Less than 24 Consecutive Hours, Continuous Positive Airway Pressure (ICD-10-PCS; 2019-11-13)
PROC: 5A2204Z Restoration of Cardiac Rhythm, Single (ICD-10-PCS; 2019-11-13)
DX: I48.19 Other persistent atrial fibrillation (principal); I50.33 Acute on chronic diastolic (congestive) heart failure; J81.0 Acute pulmonary edema; Z16.12 Extended spectrum beta lactamase (ESBL) resistance; N39.0 Urinary tract infection, site not specified; J45.901 Unspecified asthma with (acute) exacerbation; J44.1 Chronic obstructive pulmonary disease with (acute) exacerbation; J44.0 Chronic obstructive pulmonary disease with (acute) lower respiratory infection; J20.9 Acute bronchitis, unspecified; I48.92 Unspecified atrial flutter; D72.829 Elevated white blood cell count, unspecified; N28.9 Disorder of kidney and ureter, unspecified; E87.8 Other disorders of electrolyte and fluid balance, not elsewhere classified; D64.9 Anemia, unspecified; E78.5 Hyperlipidemia, unspecified; H40.9 Unspecified glaucoma; G47.33 Obstructive sleep apnea (adult) (pediatric); E11.9 Type 2 diabetes mellitus without complications; K21.9 Gastro-esophageal reflux disease without esophagitis; I11.0 Hypertensive heart disease with heart failure; I25.10 Atherosclerotic heart disease of native coronary artery without angina pectoris; Z79.01 Long term (current) use of anticoagulants; Z88.5 Allergy status to narcotic agent; Z95.5 Presence of coronary angioplasty implant and graft; Z87.891 Personal history of nicotine dependence; Z79.82 Long term (current) use of aspirin; Z79.899 Other long term (current) drug therapy; Z99.81 Dependence on supplemental oxygen
CPT/HCPCS: 36415; 71045; 80048; 80053; 81001; 82550; 83036; 83735; 83880; 84100; 84132; 84443; 84484; 85025; 85027; 85610; 85730; 87077; 87088; 87186; 93005; 94640; 94660; 94664; G0378; J0282; J1335; J1940; J2185; J2405; J2704; J2920; J3475; J3490; J7060; J7070

== ENCOUNTER 2020-01-23 08:57 | Day surgery (SDC) | payer MEDICARE ==
[~2020-01-23] VITALS: Ht 151.1 cm; Wt 83.7 kg
[~2020-01-23 08:57] MED LIST changes: -ALBU2.5V2 IH; -CALC-190 PO; +CYCL30DR OP; +DRON400T2 PO; +FLUT1DIS IH; -FLUT1DIS3 IH; +LATA7.5D OP; -LEVO500T2 PO; -XALA2.5OS OU
[2020-01-23 09:37] LABS: BASOPHILS % (AUTO) 0.6 % (0.0-5.0); EOSINOPHILS % (AUTO) 2.3 % (0.0-8.0); HEMATOCRIT 32.9 % (36-48); LYMPHOCYTES % (AUTO) 17.1 % (21.0-51.0); MEAN CORPUSCULAR HEMOGLOBIN 24.2 pg (27.0-33.0); MEAN CORPUSCULAR HGB CONC 29.2 g/dL (32.0-36.0); MEAN CORPUSCULAR VOLUME 82.9 fL (79-99); MONOCYTES % (AUTO) 6.4 % (3.0-13.0); NEUTROPHILS % (AUTO) 73.5 % (40.0-77.0); PLATELET COUNT (AUTO) 266 K/uL (130-400); RED BLOOD CELL COUNT(AUTO) 3.97 MIL/uL (4.00-5.50); RED CELL DISTRIBUTION WIDTH 17.5 % (11.0-15.5); WHITE BLOOD COUNT (AUTO) 9.8 K/uL (4.8-10.8)
[2020-01-23] MEDS ORDERED: MEPERIDINE-PF 25 MG/ML SYG ONE (09:49)
[2020-01-23] MEDS ORDERED: MIDAZOLAM HCL 1 MG/ML 2ML VIAL ONE (09:49)
[2020-01-23] MEDS ORDERED: BUPIVACAINE/PF 0.25% 30ML VIAL IJ ONE (09:49)
[2020-01-23 09:50] LABS: POTASSIUM 4.7 mmol/L (3.5-5.1)
[2020-01-23] MEDS ORDERED: LIDOCAINE HCL 1% MDV 50ML VIAL ONE (09:50)
[2020-01-23 09:53] LABS: INR 1.18 (0.85-1.15); PARTIAL THROMBOPLASTIN TIME 26.6 SEC (26.3-35.5); PROTHROMBIN TIME 12.7 SEC (9.6-11.6)
[2020-01-23 10:22] VITALS: BP 123/62
[2020-01-23] MEDS ORDERED: SODIUM CHLORIDE 0.9% 1000ML 1,000 ML IV ONE (10:34)
[2020-01-23 11:25] VITALS: BP 165/66
--- NOTE | 2020-01-23 11:25 | NUR ---
pt received from mill labor supervisor site soft, no bleeding, no hematoma.
[2020-01-23 11:40] VITALS: BP 159/82
[2020-01-23 11:55] VITALS: BP 149/73
== END 2020-01-23 12:00 | disposition home or self-care (01) ==
LOC: DAH 08:57
PROVIDERS: ATTEND Internal Medicine Cardiovascular Disease
DX: I48.0 Paroxysmal atrial fibrillation (principal); I25.10 Atherosclerotic heart disease of native coronary artery without angina pectoris; G47.33 Obstructive sleep apnea (adult) (pediatric); E78.5 Hyperlipidemia, unspecified; I48.4 Atypical atrial flutter; I10 Essential (primary) hypertension; J44.9 Chronic obstructive pulmonary disease, unspecified; Z88.5 Allergy status to narcotic agent; Z79.01 Long term (current) use of anticoagulants; Z79.82 Long term (current) use of aspirin; Z79.899 Other long term (current) drug therapy; Z99.89 Dependence on other enabling machines and devices
CPT/HCPCS: 33285; 36415; 80048; 85025; 85610; 85730; 93005; A4215; A4216; A4221; A4222; A4223 ×3; A4606; A4649; A4663; C1764; J3490 ×2; J7030; J1644; J2175; J2250

== ENCOUNTER 2022-04-07 11:54 | Inpatient (IN) | payer MEDICARE ==
[~2022-04-07] VITALS: Ht 152.4 cm; Wt 78.1 kg
[2022-04-07] VITALS (10 sets, daily range): BP systolic 83–172; BP diastolic 49–74
[~2022-04-07 11:54] MED LIST changes: -ASPI-1197 PO; -ATEN50TA PO; -ATOR20TA65 PO; +ATOR40TA71 PO; +CALC-1125 PO; -CYCL30DR OP; -DILT180C47 PO; -DRON400T2 PO; -LATA7.5D OP; +LATA7.5D OU; +MULT-1258 PO; +SERT-440 PO; -SERT100T12 PO; +TRAZ-253 PO
[2022-04-07] MEDS ORDERED: CALC-1106 PO (13:09)
[2022-04-07] MEDS ORDERED: SERT-440 PO (13:09)
[2022-04-07] MEDS ORDERED: FURO40TA7 PO (13:09)
[2022-04-07] MEDS ORDERED: LIDOCAINE HCL-MPF 1% 2ML VIAL IV PRN ×2 (14:00)
[2022-04-07] MEDS ORDERED: FUROSEMIDE 20MG VIAL IV SCH (14:00)
[2022-04-07] MEDS ORDERED: POTASSIUM CHLORIDE 20MEQ/100ML 100 ML IV PRN ×2 (14:00)
[2022-04-07] MEDS ORDERED: ACETAMINOPHEN 650 MG SUPPOSITORY RC PRN (14:00)
[2022-04-07] MEDS ORDERED: POTASSIUM CHLORIDE 10% ELIXIR 20 MEQ/15 ML UDCUP PO PRN (14:00)
[2022-04-07] MEDS ORDERED: CLONIDINE HCL 0.1 MG TABLET PO PRN (14:00)
[2022-04-07] MEDS ORDERED: HYDRALAZINE 20MG/ML VIAL IV PRN (14:00)
[2022-04-07] MEDS ORDERED: GLUCAGON 1MG KIT 1 MG ML IM PRN (14:00)
[2022-04-07] MEDS ORDERED: DEXTROSE 50%-WATER 50 ML DISP.SYRIN IV PRN (14:00)
[2022-04-07] MEDS ORDERED: ONDANSETRON 4MG INJ IVP PRN (14:00)
[2022-04-07 14:18] LABS: BASOPHILS % (AUTO) 0.1 % (0.0-5.0); EOSINOPHILS % (AUTO) 2.8 % (0.0-8.0); HEMATOCRIT 36.5 % (36-48); LYMPHOCYTES % (AUTO) 14.3 % (21.0-51.0); MEAN CORPUSCULAR HEMOGLOBIN 27.5 pg (27.0-33.0); MEAN CORPUSCULAR HGB CONC 30.1 g/dL (32.0-36.0); MEAN CORPUSCULAR VOLUME 91.3 fL (79-99); MONOCYTES % (AUTO) 6.5 % (3.0-13.0); NEUTROPHILS % (AUTO) 75.5 % (40.0-77.0); PLATELET COUNT (AUTO) 120 K/uL (130-400); RED CELL DISTRIBUTION WIDTH 19.3 % (11.0-15.5); WHITE BLOOD COUNT (AUTO) 7.9 K/uL (4.8-10.8)
[2022-04-07] MEDS ORDERED: AMIODARONE 150MG VIAL 150 MG in DEXTROSE 5%-WATER 100 ML IV SCH ×2 (14:30→15:00)
[2022-04-07 14:45] LABS: CREATININE 0.8 mg/dL (0.5-1.5); POTASSIUM 3.8 mmol/L (3.5-5.1)
[2022-04-07 14:54] LABS: B-TYPE NATRIURETIC PEPTIDE 978 pg/mL (0-100)
[2022-04-07 14:59] LABS: MAGNESIUM 1.3 mg/dL (1.80-2.40); PHOSPHORUS 3.6 mg/dL (2.5-4.9)
[2022-04-07 15:00] LABS: BILIRUBIN,DIRECT 0.6 mg/dL (0.0-0.3)
[2022-04-07] MEDS ORDERED: DILTIAZEM 125 MG/25 ML INJ 125 MG in 0.9%NACL 100ML 100 ML IV PRN (15:00)
[2022-04-07] MEDS ORDERED: AMIODARONE 900MG VIAL 360 MG in DEXTROSE 5%-WATER 200 ML IV SCH (15:00)
[2022-04-07] MEDS ORDERED: DILTIAZEM 25MG INJ IVP ONE ×2 (15:00→16:00)
[2022-04-07] MEDS: DILTIAZEM 60MG TAB PO SCH ×2 (15:00→21:18)
[2022-04-07 15:01] LABS: ALBUMIN 2.6 g/dL (3.5-5.0); TOTAL PROTEIN, SERUM 5.8 g/dL (6.0-8.3)
[2022-04-07] MEDS: MAGNESIUM 2GM PREMIX 50ML 50 ML IV PRN (15:36)
[2022-04-07] MEDS: KCL 20 MEQ ERTAB PO PRN ×2 (15:36→17:33)
[2022-04-07] MEDS: DILTIAZEM 125 MG/25 ML INJ 125 MG in 0.9%NACL 100ML 100 ML IV SCH (15:57)
[2022-04-07] MEDS: INSULIN HUMULIN R 100 UNIT/ML 3ML SQ SCH ×2 (16:05→20:57)
[2022-04-07 16:54] LABS: APPEARANCE,URINE CLEAR (CLEAR); BILIRUBIN,URINE NEGATIVE (NEGATIVE); COLOR,URINE COLORLESS (YELLOW); GLUCOSE, URINE (UA) NEGATIVE (NEGATIVE); KETONES,URINE NEGATIVE (NEGATIVE); LEUKOCYTE ESTERASE ,URINE NEGATIVE Leu/uL (NEGATIVE); NITRATE,URINE NEGATIVE (NEGATIVE); OCCULT BLOOD,URINE NEGATIVE (NEGATIVE); PH,URINE 7.5 (5.0-8.0); PROTEIN,URINE NEGATIVE (NEGATIVE); UROBILINOGEN,URINE 0.2 mg/dL (0.2-1.0)
[2022-04-07] MEDS: DILTIAZEM 25MG INJ IVP SCH ×3 (18:23→18:43)
[2022-04-07] MEDS: LATANOPROST 2.5 ML DROPS OU SCH (21:00)
[2022-04-07] MEDS ORDERED: AMIODARONE 900MG VIAL 540 MG in DEXTROSE 5%-WATER 300 ML IV SCH (21:00)
[2022-04-07] MEDS ORDERED: NON-FORMULARY MEDICATION 1 EACH (Latanoprost/Pf (Latanoprost 0.005% Eye Drop) 1 DROP) OU SCH (21:00)
[2022-04-07] MEDS: NYSTATIN 15 GM POWDER TP SCH (21:18)
[2022-04-07] MEDS: TRAZODONE HCL 50 MG TAB PO SCH (21:18)
[2022-04-07] MEDS: ATORVASTATIN 40 MG TABLET PO SCH (21:18)
[2022-04-07 21:19] LABS: MAGNESIUM 1.9 mg/dL (1.80-2.40); POTASSIUM 4.6 mmol/L (3.5-5.1)
[2022-04-07] MEDS: BALSAM PERU/CASTOR OIL 60 GM TUBE TP SCH (21:20)
[2022-04-08] VITALS (7 sets, daily range): BP systolic 105–142; BP diastolic 62–76
[2022-04-08 02:09] LABS: HEMATOCRIT 36.5 % (36-48); MEAN CORPUSCULAR HEMOGLOBIN 27.4 pg (27.0-33.0); MEAN CORPUSCULAR HGB CONC 30.4 g/dL (32.0-36.0); MEAN CORPUSCULAR VOLUME 90.1 fL (79-99); RED BLOOD CELL COUNT(AUTO) 4.05 MIL/uL (4.00-5.50); RED CELL DISTRIBUTION WIDTH 19.7 % (11.0-15.5); WHITE BLOOD COUNT (AUTO) 8.3 K/uL (4.8-10.8)
[2022-04-08] MEDS: FUROSEMIDE 20MG VIAL IV SCH ×2 (02:36→14:49)
[2022-04-08 02:41] LABS: ALBUMIN 2.5 g/dL (3.5-5.0); CREATININE 0.9 mg/dL (0.5-1.5); MAGNESIUM 2.2 mg/dL (1.80-2.40); PHOSPHORUS 3.9 mg/dL (2.5-4.9); POTASSIUM 5.1 mmol/L (3.5-5.1); TOTAL PROTEIN, SERUM 5.7 g/dL (6.0-8.3)
[2022-04-08] MEDS: DILTIAZEM 60MG TAB PO SCH ×4 (02:59→20:47)
[2022-04-08] MEDS: INSULIN HUMULIN R 100 UNIT/ML 3ML SQ SCH ×4 (06:40→20:39)
[2022-04-08] MEDS: PANTOPRAZOLE 40 MG TAB DR PO SCH (08:56)
[2022-04-08] MEDS: SERTRALINE HCL 50 MG TABLET PO SCH (08:56)
[2022-04-08] MEDS: MULTIVITAMIN TABLET PO SCH (08:57)
[2022-04-08] MEDS: BALSAM PERU/CASTOR OIL 60 GM TUBE TP SCH ×2 (08:57→20:59)
[2022-04-08] MEDS: NYSTATIN 15 GM POWDER TP SCH ×2 (08:58→20:59)
[2022-04-08] MEDS: CA 600MG+VIT D 400 UNIT TAB 1 TAB TABLET PO SCH (08:59)
[2022-04-08] MEDS ORDERED: [UNRECOGNIZED DRUG - OTHER] PO SCH (09:00)
[2022-04-08] MEDS ORDERED: NON-FORMULARY MEDICATION 1 EACH (Multivits-Min/FA/Lycopene/Lut (Centrum Silver Tablet) 1 E PO SCH (09:00)
[2022-04-08] MEDS ORDERED: NON-FORMULARY MEDICATION 1 EACH (Dexlansoprazole (Dexilant) 60 MG) PO SCH (09:00)
[2022-04-08] MEDS ORDERED: SERTRALINE HCL 150 MG PO SCH (09:00)
[2022-04-08] MEDS ORDERED: VITAMIN D3 PO SCH (09:00)
[2022-04-08] MEDS ORDERED: CALCIUM CARBONATE PO SCH (09:00)
[2022-04-08] MEDS: POLYETHYLENE GLYCOL 3350 17 GM POWD.PACK PO SCH (09:00)
[2022-04-08] MEDS ORDERED: VANCOMYCIN 1G/250ML KIT 250 ML IV PRN (14:30)
[2022-04-08] MEDS: DILTIAZEM 125 MG/25 ML INJ 125 MG in 0.9%NACL 100ML 100 ML IV SCH (14:34)
[2022-04-08] MEDS: TRAZODONE HCL 50 MG TAB PO SCH (20:47)
[2022-04-08] MEDS: ATORVASTATIN 40 MG TABLET PO SCH (20:47)
[2022-04-08] MEDS: LATANOPROST 2.5 ML DROPS OU SCH (20:59)
[2022-04-09] VITALS (13 sets, daily range): BP systolic 117–141; BP diastolic 57–79
[2022-04-09] MEDS: DILTIAZEM 60MG TAB PO SCH (02:24)
[2022-04-09] MEDS: FUROSEMIDE 20MG VIAL IV SCH ×2 (02:24→15:13)
[2022-04-09] MEDS: DILTIAZEM 125 MG/25 ML INJ 125 MG in 0.9%NACL 100ML 100 ML IV SCH (02:50)
[2022-04-09 03:58] LABS: HEMATOCRIT 36.5 % (36-48); MEAN CORPUSCULAR HEMOGLOBIN 27.5 pg (27.0-33.0); MEAN CORPUSCULAR HGB CONC 31.2 g/dL (32.0-36.0); PLATELET COUNT (AUTO) 165 K/uL (130-400); RED BLOOD CELL COUNT(AUTO) 4.15 MIL/uL (4.00-5.50); RED CELL DISTRIBUTION WIDTH 19.2 % (11.0-15.5); WHITE BLOOD COUNT (AUTO) 8.7 K/uL (4.8-10.8)
[2022-04-09 04:06] LABS: INR 1.2 (0.85-1.15); PROTHROMBIN TIME 12.9 SEC (9.6-11.6)
[2022-04-09 04:08] LABS: PARTIAL THROMBOPLASTIN TIME 29.1 SEC (26.3-35.5)
[2022-04-09 04:14] LABS: ALBUMIN 2.5 g/dL (3.5-5.0); CREATININE 0.8 mg/dL (0.5-1.5); MAGNESIUM 1.6 mg/dL (1.80-2.40); PHOSPHORUS 3.3 mg/dL (2.5-4.9); POTASSIUM 3.8 mmol/L (3.5-5.1); TOTAL PROTEIN, SERUM 5.7 g/dL (6.0-8.3)
[2022-04-09 04:19] LABS: B-TYPE NATRIURETIC PEPTIDE 310 pg/mL (0-100)
[2022-04-09] MEDS: MAGNESIUM 2GM PREMIX 50ML 50 ML IV PRN (04:51)
[2022-04-09] MEDS: INSULIN HUMULIN R 100 UNIT/ML 3ML SQ SCH ×4 (06:23→21:30)
[2022-04-09] MEDS ORDERED: IODIXANOL 320 MG/ML 100 ML VIAL ONE (09:45)
[2022-04-09] MEDS ORDERED: MIDAZOLAM HCL 1 MG/ML 2ML VIAL ONE ×3 (09:50→10:35)
[2022-04-09] MEDS ORDERED: MEPERIDINE-PF 25 MG/ML SYG ONE ×3 (09:50→10:35)
[2022-04-09] MEDS ORDERED: BUPIVACAINE/PF 0.25% 10ML VIAL IJ ONE (09:51)
[2022-04-09] MEDS ORDERED: LIDOCAINE HCL 1% MDV 50ML VIAL ONE ×2 (09:51→12:26)
[2022-04-09] MEDS: POLYETHYLENE GLYCOL 3350 17 GM POWD.PACK PO SCH (15:00)
[2022-04-09] MEDS: SERTRALINE HCL 50 MG TABLET PO SCH (15:08)
[2022-04-09] MEDS: PANTOPRAZOLE 40 MG TAB DR PO SCH (15:09)
[2022-04-09] MEDS: MULTIVITAMIN TABLET PO SCH (15:09)
[2022-04-09] MEDS: NYSTATIN 15 GM POWDER TP SCH ×2 (15:10→21:25)
[2022-04-09] MEDS: CA 600MG+VIT D 400 UNIT TAB 1 TAB TABLET PO SCH (15:10)
[2022-04-09] MEDS: BALSAM PERU/CASTOR OIL 60 GM TUBE TP SCH ×2 (15:11→21:25)
[2022-04-09] MEDS: ACETAMINOPHEN 325 MG TAB PO PRN (17:19)
[2022-04-09] MEDS: LATANOPROST 2.5 ML DROPS OU SCH (21:00)
[2022-04-09] MEDS: ATORVASTATIN 40 MG TABLET PO SCH (21:10)
[2022-04-09] MEDS: TRAZODONE HCL 50 MG TAB PO SCH (21:10)
[2022-04-10] MEDS: FUROSEMIDE 20MG VIAL IV SCH (02:12)
[2022-04-10 03:44] VITALS: BP 138/58
[2022-04-10 03:45] LABS: HEMATOCRIT 39.3 % (36-48); MEAN CORPUSCULAR HEMOGLOBIN 27.7 pg (27.0-33.0); MEAN CORPUSCULAR HGB CONC 30.3 g/dL (32.0-36.0); MEAN CORPUSCULAR VOLUME 91.4 fL (79-99); RED BLOOD CELL COUNT(AUTO) 4.3 MIL/uL (4.00-5.50); RED CELL DISTRIBUTION WIDTH 19.5 % (11.0-15.5); WHITE BLOOD COUNT (AUTO) 8.7 K/uL (4.8-10.8)
[2022-04-10] MEDS: ACETAMINOPHEN 325 MG TAB PO PRN ×2 (03:53→14:13)
[2022-04-10 04:03] LABS: ALBUMIN 2.6 g/dL (3.5-5.0); CREATININE 0.9 mg/dL (0.5-1.5); MAGNESIUM 1.8 mg/dL (1.80-2.40); PHOSPHORUS 3.8 mg/dL (2.5-4.9); POTASSIUM 4.3 mmol/L (3.5-5.1); TOTAL PROTEIN, SERUM 6.1 g/dL (6.0-8.3)
[2022-04-10] MEDS: MAGNESIUM 2GM PREMIX 50ML 50 ML IV PRN (06:13)
[2022-04-10] MEDS: INSULIN HUMULIN R 100 UNIT/ML 3ML SQ SCH ×2 (06:19→11:30)
[2022-04-10 07:15] VITALS: BP 136/69
[2022-04-10] MEDS ORDERED: FUROSEMIDE 40 MG TABLET ONE (08:31)
[2022-04-10] MEDS: POLYETHYLENE GLYCOL 3350 17 GM POWD.PACK PO SCH (08:37)
[2022-04-10] MEDS: PANTOPRAZOLE 40 MG TAB DR PO SCH (08:37)
[2022-04-10] MEDS: MULTIVITAMIN TABLET PO SCH (08:37)
[2022-04-10] MEDS: BALSAM PERU/CASTOR OIL 60 GM TUBE TP SCH (08:38)
[2022-04-10] MEDS: NYSTATIN 15 GM POWDER TP SCH (08:39)
[2022-04-10] MEDS: CA 600MG+VIT D 400 UNIT TAB 1 TAB TABLET PO SCH (08:44)
[2022-04-10] MEDS: SERTRALINE HCL 50 MG TABLET PO SCH (08:44)
[2022-04-10] MEDS ORDERED: FUROSEMIDE 40 MG TABLET PO SCH (09:00)
[2022-04-10 11:00] VITALS: BP 136/80
[2022-04-10] MEDS ORDERED: FUROSEMIDE 40MG VIAL IV SCH (11:00)
[2022-04-13] MEDS ORDERED: TRAM50TA4 PO (15:19)
== END 2022-04-10 14:47 | disposition home or self-care (01) | DRG 242 ==
LOC: EDH 11:54 → 2AH 11:55
PROVIDERS: ADMIT Internal Medicine Critical Care Medicine; ATTEND Internal Medicine Critical Care Medicine
PROC: 0JH606Z Insertion of Pacemaker, Dual Chamber into Chest Subcutaneous Tissue and Fascia, Open Approach (ICD-10-PCS; principal; 2022-04-09)
PROC: 02HK3JZ Insertion of Pacemaker Lead into Right Ventricle, Percutaneous Approach (ICD-10-PCS; 2022-04-09)
PROC: 02HL3JZ Insertion of Pacemaker Lead into Left Ventricle, Percutaneous Approach (ICD-10-PCS; 2022-04-09)
PROC: 5A09357 Assistance with Respiratory Ventilation, Less than 24 Consecutive Hours, Continuous Positive Airway Pressure (ICD-10-PCS; 2022-04-09)
PROC: 5A09357 Assistance with Respiratory Ventilation, Less than 24 Consecutive Hours, Continuous Positive Airway Pressure (ICD-10-PCS; 2022-04-10)
DX: I48.0 Paroxysmal atrial fibrillation (principal); I50.43 Acute on chronic combined systolic (congestive) and diastolic (congestive) heart failure; K75.9 Inflammatory liver disease, unspecified; G47.33 Obstructive sleep apnea (adult) (pediatric); E11.9 Type 2 diabetes mellitus without complications; E66.9 Obesity, unspecified; E78.5 Hyperlipidemia, unspecified; I11.0 Hypertensive heart disease with heart failure; I25.10 Atherosclerotic heart disease of native coronary artery without angina pectoris; I25.5 Ischemic cardiomyopathy; J44.9 Chronic obstructive pulmonary disease, unspecified; Z79.01 Long term (current) use of anticoagulants; Z86.16 Personal history of COVID-19; Z87.01 Personal history of pneumonia (recurrent); Z95.5 Presence of coronary angioplasty implant and graft; Z68.33 Body mass index [BMI] 33.0-33.9, adult
CPT/HCPCS: 33207; 33225; 36415; 71045; 80048; 80053; 80076; 81001; 82550; 82948; 83735; 83874; 83880; 84100; 84132; 84145; 84443; 84484; 85025; 85027; 85378; 85610; 85730; 93005; 93308; 93619; 93650; 93970; 93971; 97039; 99156; 99157; C1732; C1769; C1894; C1900; C2621; G0378; J0282; J1815; J1940; J2175; J2250; J3370; J3475; J3490; J7060; Q9967

== ENCOUNTER 2022-06-30 06:11 | Observation (INO) | payer MEDICARE ==
[2022-06-28 14:24] LABS: BASOPHILS % (AUTO) 0.4 % (0.0-5.0); EOSINOPHILS % (AUTO) 2.3 % (0.0-8.0); HEMATOCRIT 38.1 % (36-48); LYMPHOCYTES % (AUTO) 18.8 % (21.0-51.0); MEAN CORPUSCULAR HGB CONC 30.4 g/dL (32.0-36.0); MEAN CORPUSCULAR VOLUME 88.6 fL (79-99); MONOCYTES % (AUTO) 5.4 % (3.0-13.0); NEUTROPHILS % (AUTO) 72.8 % (40.0-77.0); PLATELET COUNT (AUTO) 237 K/uL (130-400); RED CELL DISTRIBUTION WIDTH 17.3 % (11.0-15.5); WHITE BLOOD COUNT (AUTO) 9.2 K/uL (4.8-10.8)
[2022-06-28 14:30] LABS: APPEARANCE,URINE CLEAR (CLEAR); BILIRUBIN,URINE NEGATIVE (NEGATIVE); COLOR,URINE YELLOW (YELLOW); GLUCOSE, URINE (UA) NEGATIVE (NEGATIVE); KETONES,URINE NEGATIVE (NEGATIVE); LEUKOCYTE ESTERASE ,URINE 75 Leu/uL (NEGATIVE); NITRATE,URINE 1+ (NEGATIVE); OCCULT BLOOD,URINE NEGATIVE (NEGATIVE); PROTEIN,URINE 20 mg/dL (NEGATIVE); UROBILINOGEN,URINE 0.2 mg/dL (0.2-1.0)
[2022-06-28 14:39] LABS: INR 1.15 (0.85-1.15); PROTHROMBIN TIME 12.4 SEC (9.6-11.6)
[2022-06-28 14:41] LABS: PARTIAL THROMBOPLASTIN TIME 34.7 SEC (26.3-35.5)
[2022-06-28 14:44] LABS: BACTERIA,URINE MOD /HPF (None Seen); MUCUS,URINE RARE LPF (None Seen); SQUAMOUS EPITHELIAL CELL,UR RARE /HPF (0-2); YEAST,URINE BUDDING RARE /HPF (None Seen)
[2022-06-28 14:46] LABS: B-TYPE NATRIURETIC PEPTIDE 348 pg/mL (0-100)
[2022-06-28 15:05] VITALS: BP 131/67
[~2022-06-30] VITALS: Ht 152.4 cm; Wt 79.7 kg
[2022-06-30] VITALS (9 sets, daily range): BP systolic 111–146; BP diastolic 50–77
[~2022-06-30 06:11] MED LIST changes: +CALC-1106 PO; -CALC-1125 PO; -FLUT1DIS IH; +FURO20TA4 PO; -FURO40TA5 PO; -LATA7.5D OU
[2022-06-30] MEDS ORDERED: 0.9%NACL 1000ML 1,000 ML IV ONE (07:16)
[2022-06-30] MEDS ORDERED: LIDOCAINE HCL 400MG/20ML VIAL ONE (08:55)
[2022-06-30] MEDS ORDERED: MIDAZOLAM HCL 1 MG/ML 2ML VIAL ONE (08:55)
[2022-06-30] MEDS ORDERED: HEPARIN 10,000 UNIT/10ML (1,000 UNIT/ML) VIAL ONE (08:55)
[2022-06-30] MEDS ORDERED: FENTANYL CITRATE PF 50 MCG/1 ML 2ML VIAL ONE (08:55)
[2022-06-30] MEDS ORDERED: IOHEXOL-350 75 ML VIAL IV ONE (08:55)
[2022-06-30] MEDS ORDERED: NITROGLYCERIN 50MG VIAL ONE (08:55)
[2022-06-30] MEDS ORDERED: IOHEXOL-350 50ML VIAL IV ONE (08:56)
[2022-06-30] MEDS ORDERED: DEXTROSE 50%-WATER 50 ML DISP.SYRIN IV PRN (11:00)
[2022-06-30] MEDS ORDERED: GLUCAGON 1MG KIT 1 MG ML IM PRN (11:00)
[2022-06-30] MEDS ORDERED: 0.9%NACL 1000ML 1,000 ML IV SCH (11:00)
[2022-06-30] MEDS ORDERED: INSULIN HUMULIN R 100 UNIT/ML 3ML SQ SCH ×2 (11:30→16:30)
[2022-06-30 12:04] LABS: ABG BASE EXCESS -3.1 mmol/L (-2.0-3.0); ABG HCO3 20.6 mmol/L (21.0-28.0); ABG OXYGEN SATURATION 96.2 % (95.0-99.0); ABG PCO2 33 mmHg (32-45)
[2022-06-30] MEDS ORDERED: GUAIFENESIN SUGAR-FREE 100 MG/5 ML UDCUP PO PRN (14:00)
[2022-06-30] MEDS ORDERED: GUAIFENESIN-DM 200/20 MG 10 ML PO PRN (14:00)
[2022-06-30] MEDS ORDERED: DOCUSATE SODIUM 100 MG CAP PO PRN (14:00)
[2022-06-30] MEDS ORDERED: ACETAMINOPHEN 325 MG TAB PO PRN ×2 (14:00)
[2022-06-30] MEDS ORDERED: ZOLPIDEM TARTRATE 5 MG TAB PO PRN (14:00)
[2022-06-30] MEDS ORDERED: POLYETHYLENE GLYCOL 3350 17 GM POWD.PACK PO PRN (14:00)
[2022-06-30] MEDS ORDERED: LACTULOSE 20 GM/30 ML UDCUP PO PRN (14:00)
[2022-06-30] MEDS ORDERED: ALPRAZOLAM 0.5 MG TABLET PO PRN (14:00)
[2022-06-30] MEDS ORDERED: ONDANSETRON 4MG INJ IV PRN (14:00)
[2022-06-30] MEDS ORDERED: NITROGLYCERIN 0.4 MG SL TAB SL PRN (14:00)
[2022-06-30] MEDS ORDERED: FAMOTIDINE 20MG TAB PO SCH (21:00)
[2022-06-30] MEDS ORDERED: ATORVASTATIN 40 MG TABLET PO SCH (21:00)
[2022-06-30] MEDS ORDERED: TRAZODONE HCL 50 MG TAB PO SCH (21:00)
[2022-06-30] MEDS ORDERED: APIXABAN 5 MG TABLET PO SCH (21:00)
[2022-07-01] MEDS ORDERED: MULTIVITS,STRESS FORMULA/ZINC 1 TABLET PO SCH (09:00)
[2022-07-01] MEDS ORDERED: CA 600MG+VIT D 400 UNIT TAB 1 TAB TABLET PO SCH (09:00)
[2022-07-01] MEDS ORDERED: DEXLANSOPRAZOLE 60 MG PO SCH (09:00)
[2022-07-01] MEDS ORDERED: SERTRALINE HCL 50 MG TABLET PO SCH (09:00)
[2022-07-01] MEDS ORDERED: FUROSEMIDE 20 MG TABLET PO SCH (09:00)
== END 2022-06-30 17:33 ==
LOC: DAH 06:11 → INTOOBSV 06:12 → DAH 06:12 → DAHIP 06:12 → 3AH 15:00
PROVIDERS: ADMIT Internal Medicine; ATTEND Internal Medicine
DX: I25.10 Atherosclerotic heart disease of native coronary artery without angina pectoris (principal); I11.0 Hypertensive heart disease with heart failure; I50.43 Acute on chronic combined systolic (congestive) and diastolic (congestive) heart failure; J44.0 Chronic obstructive pulmonary disease with (acute) lower respiratory infection; E11.9 Type 2 diabetes mellitus without complications; G47.33 Obstructive sleep apnea (adult) (pediatric); I48.91 Unspecified atrial fibrillation; J18.9 Pneumonia, unspecified organism; E66.9 Obesity, unspecified; E78.5 Hyperlipidemia, unspecified; Z79.01 Long term (current) use of anticoagulants; Z86.718 Personal history of other venous thrombosis and embolism; Z79.899 Other long term (current) drug therapy; Z98.890 Other specified postprocedural states; Z68.34 Body mass index [BMI] 34.0-34.9, adult
CPT/HCPCS: 80048; 83880; 85025; 85610; 85730; 87088; 81001; 36415; 71045; 93005 ×2; 93460; 82947; 82435; 84132; 84295; 82803; 85018; 87077; 87186; 83605; 71250; 36600; 82948 ×3; C1894 ×3; C1769; G0378; J3490 ×2; J7030; J1644; Q9967 ×2; A4215; A4335; A4222; A4221; A4663; A4216; A4606; A4520; A4223 ×3; A4554; J2250; J3010

== ENCOUNTER → 2022-08-12 | Outpatient (CLI) | payer MEDICARE | END | disposition home or self-care (01) | LOC: LAB 11:46 | PROVIDERS: ATTEND Internal Medicine Cardiovascular Disease | DX: I27.0 Primary pulmonary hypertension (principal) | CPT/HCPCS: 36415; 82565; 84520 ==

== ENCOUNTER → 2022-09-27 | Outpatient (CLI) | payer MEDICARE ==
[2022-09-27 16:50] LABS: CREATININE 1.1 mg/dL (0.5-1.5)
== END | disposition home or self-care (01) ==
LOC: LAB 13:55
PROVIDERS: ATTEND Internal Medicine Cardiovascular Disease
DX: I50.32 Chronic diastolic (congestive) heart failure (principal); I27.23 Pulmonary hypertension due to lung diseases and hypoxia
CPT/HCPCS: 36415; 82565; 84520

== ENCOUNTER → 2022-10-01 | Outpatient (CLI) | payer MEDICARE ==
[~2022-10-01] MED LIST changes: +IOHEXOL-350 75 ML VIAL IV ONE; +PRED20B PO; +SACU1TAB PO
== END | disposition home or self-care (01) ==
LOC: RAH 08:30
PROVIDERS: ATTEND Internal Medicine Cardiovascular Disease
DX: I27.0 Primary pulmonary hypertension (principal); I26.99 Other pulmonary embolism without acute cor pulmonale
CPT/HCPCS: 71270; Q9967

== ENCOUNTER → 2022-10-25 | Outpatient (CLI) | payer MEDICARE ==
[~2022-10-25] MED LIST changes: -IOHEXOL-350 75 ML VIAL IV ONE
== END | disposition home or self-care (01) ==
LOC: RAH 11:20
PROVIDERS: ATTEND Internal Medicine Cardiovascular Disease
DX: G31.9 Degenerative disease of nervous system, unspecified (principal); R55 Syncope and collapse
CPT/HCPCS: 70450

== ENCOUNTER → 2022-11-16 | Outpatient (CLI) | payer MEDICARE ==
[~2022-11-16] MED LIST changes: +IOHEXOL 350 MG/ML 100ML INFUS..BTL IV ONE
== END | disposition home or self-care (01) ==
LOC: RAH 09:00
PROVIDERS: ATTEND Internal Medicine
DX: N28.1 Cyst of kidney, acquired (principal); N28.89 Other specified disorders of kidney and ureter; N39.0 Urinary tract infection, site not specified; K57.30 Diverticulosis of large intestine without perforation or abscess without bleeding; I25.10 Atherosclerotic heart disease of native coronary artery without angina pectoris; I51.7 Cardiomegaly; Z16.12 Extended spectrum beta lactamase (ESBL) resistance
CPT/HCPCS: 74178; Q9967